=== PATIENT | male | born 1970 | race Caucasian/White ===

== ENCOUNTER 2017-09-22 00:14 | Emergency (ER) | payer SELFPAY ==
[~2017-09-22] VITALS: Ht 190.5 cm; Wt 116.4 kg
[2017-09-22 00:56] LABS: HEMATOCRIT 46.3 % (38.0-50.0); MCH 31.6 PG (29.0-34.0); MCHC 34.6 G/DL (30.0-36.0); MCV 91.5 FL (86-99); PLATELET COUNT 298 K/uL (156-360); RBC DIS.WIDTH-CV 13.6 % (11.8-14.6); RBC DIS.WIDTH-SD 46.5 % (39-53); RED BLOOD COUNT 5.06 M/uL (4.00-5.50); WHITE BLOOD COUNT 8.8 K/uL (4.1-10.2)
[2017-09-22 01:04] LABS: CHLORIDE 101 mEq/L (99-109); POTASSIUM 3.3 mEq/L (3.7-5.4); SODIUM 137 mEq/L (136-147)
[2017-09-22 01:06] LABS: GLUCOSE 123 mg/dL (70-99)
[2017-09-22 01:07] LABS: ANION GAP 15 MEQ/L (2-14)
[2017-09-22 01:10] LABS: UREA NITROGEN (BUN) 8 mg/dL (9-23)
[2017-09-22 01:12] LABS: GFR ESTIMATE (CALCULATED) > 59 mL/min/
[2017-09-22 01:16] LABS: TROP-I INTERPRETATION NEGATIVE; TROPONIN-I < 0.01 ng/mL (0.0-0.30)
[2017-09-22 03:00] VITALS: BP 143/86
== END 2017-09-22 03:40 | disposition home or self-care (01) ==
LOC: EME 00:14
DX: R07.9 Chest pain, unspecified (principal); R00.2 Palpitations; R20.2 Paresthesia of skin; Z87.891 Personal history of nicotine dependence
CPT/HCPCS: 71020; 80048; 84484; 85027; 93005; 99281; 99284